=== PATIENT | male | born 1985 | race Caucasian/White ===

== ENCOUNTER 2018-02-05 18:27 | Inpatient (IN) ==
[2018-02-07 12:25] VITALS: O2SAT 98
[2018-02-07 16:10] VITALS: BP 137/65; PULSE 102; RESP 18; TEMP 97.9
== END 2018-02-07 16:21 | disposition home or self-care (01) ==
LOC: NEPI 18:27 → NEDA 19:04 → EDBD 19:04 → N06 21:17
PROVIDERS: ADMIT Surgery; ATTEND Surgery